=== PATIENT | female | born 1990 | race Caucasian/White ===

== ENCOUNTER 2017-04-20 18:15 | Emergency (ER) | payer OTHER ==
[~2017-04-20] VITALS: Ht 160 cm; Wt 49.1 kg
[2017-04-20 18:17] VITALS: BP 123/75
[2017-04-20] MEDS ORDERED: ACETAMINOPHEN 325 MG TABLET ONE (18:54)
[2017-04-20] MEDS ORDERED: ACETAMINOPHEN 325 MG TABLET PO ONE (19:00)
[2017-04-20] MEDS ORDERED: ONDANSETRON ODT 4 MG ONE (19:46)
[2017-04-20] MEDS ORDERED: ONDANSETRON ODT 4 MG PO ONE (20:00)
== END 2017-04-20 20:53 | disposition home or self-care (01) ==
LOC: ED 20:30
DX: S61.217D Laceration without foreign body of left little finger without damage to nail, subsequent encounter (principal)
CPT/HCPCS: 99283

== ENCOUNTER 2017-04-24 15:18 | Emergency (ER) | payer OTHER ==
[~2017-04-24] VITALS: Ht 160 cm; Wt 49.0 kg
[2017-04-24 15:19] VITALS: BP 118/78
== END 2017-04-24 16:13 | disposition home or self-care (01) ==
LOC: ED 16:04
DX: S61.216D Laceration without foreign body of right little finger without damage to nail, subsequent encounter (principal); X58.XXXD Exposure to other specified factors, subsequent encounter; Y92.89 Other specified places as the place of occurrence of the external cause; Y99.8 Other external cause status; Z88.2 Allergy status to sulfonamides
CPT/HCPCS: 29125

== ENCOUNTER 2017-05-02 16:43 | Emergency (ER) | payer OTHER ==
[~2017-05-02] VITALS: Ht 160 cm; Wt 48.8 kg
[2017-05-02 17:10] VITALS: BP 115/69
== END 2017-05-02 19:14 | disposition left against medical advice (07) ==
LOC: ED 19:08
DX: S61.217D Laceration without foreign body of left little finger without damage to nail, subsequent encounter (principal); Z88.2 Allergy status to sulfonamides; W45.8XXD Other foreign body or object entering through skin, subsequent encounter; Y92.89 Other specified places as the place of occurrence of the external cause; Y99.8 Other external cause status
CPT/HCPCS: 99281

== ENCOUNTER 2017-05-25 16:52 | Emergency (ER) | payer SELFPAY ==
[~2017-05-25] VITALS: Ht 160 cm; Wt 48.5 kg
[2017-05-25 16:53] VITALS: BP 111/75
== END 2017-05-25 17:39 | disposition home or self-care (01) ==
LOC: ED 17:15
DX: S61.217D Laceration without foreign body of left little finger without damage to nail, subsequent encounter (principal)
CPT/HCPCS: 99281

== ENCOUNTER 2017-06-12 12:32 | Emergency (ER) | payer SELFPAY ==
[~2017-06-12] VITALS: Ht 160 cm; Wt 48.2 kg
[2017-06-12] MEDS ORDERED: SODIUM CHLORIDE 0.9% 1,000 ML IV ONE (12:59)
[2017-06-12] MEDS ORDERED: ONDANSETRON 2MG/ML, 2ML IVPush ONE (13:00)
[2017-06-12 13:14] LABS: HCG UR LOT HCG7030192
[2017-06-12] MEDS ORDERED: ONDANSETRON 2MG/ML, 2ML ONE (13:26)
[2017-06-12] MEDS ORDERED: MORPHINE SULFATE 4 MG/ML, 1ML ONE ×2 (13:26→14:24)
[2017-06-12 13:27] LABS: PATH.CAST-FLAG NOT PRESENT; SPERM-FLAG NOT PRESENT; SRC-FLAG NOT PRESENT; XTAL-FLAG NOT PRESENT; YLC-FLAG NOT PRESENT
[2017-06-12] MEDS: MORPHINE SULFATE 4 MG/ML, 1ML IVPush PRN ×2 (13:28→14:27)
[2017-06-12 13:33] LABS: HEMATOCRIT 40.1 % (34.6-47.8); HEMOGLOBIN 13.2 g/dL (11.7-16.4); WHITE BLOOD COUNT 6.4 x10^3/uL (3.4-10)
[2017-06-12 13:36] LABS: HCG UR OBC PASS
[2017-06-12 13:39] LABS: ASPARTATE AMINO TRANSFERASE 17 U/L (15-37); BLOOD UREA NITROGEN 11 mg/dL (7-18)
[2017-06-12 14:27] VITALS: BP 111/66
== END 2017-06-12 15:16 | disposition home or self-care (01) ==
LOC: ED 15:12
DX: R10.31 Right lower quadrant pain (principal); R11.0 Nausea
CPT/HCPCS: 36415; 76830; 80053; 81001; 81025; 85025; 96361; 96374; 96375; 96376; 99285; J2405; J7030

== ENCOUNTER 2017-08-09 08:50 | Emergency (ER) | payer SELFPAY ==
[~2017-08-09] VITALS: Ht 160 cm; Wt 49.0 kg
[2017-08-09 09:31] LABS: HCG UR LOT HCG7030192
[2017-08-09 09:43] LABS: HCG UR OBC PASS; PATH.CAST-FLAG NOT PRESENT; SPERM-FLAG NOT PRESENT; SRC-FLAG NOT PRESENT; XTAL-FLAG NOT PRESENT; YLC-FLAG NOT PRESENT
[2017-08-09] MEDS ORDERED: CEFTRIAXONE 250 MG ONE (10:35)
[2017-08-09] MEDS ORDERED: AZITHROMYCIN 500 MG TABLET ONE (10:35)
[2017-08-09] MEDS ORDERED: AZITHROMYCIN 500 MG TABLET PO ONE (11:00)
[2017-08-09] MEDS ORDERED: CEFTRIAXONE 250 MG IM ONE (11:00)
[2017-08-09 11:31] VITALS: BP 102/70
== END 2017-08-09 11:43 | disposition home or self-care (01) ==
LOC: ED 09:17
DX: A74.9 Chlamydial infection, unspecified (principal); A54.03 Gonococcal cervicitis, unspecified
CPT/HCPCS: 81001; 81025; 87086; 87210; 87491; 87591; 87808; 96372; 99284; J0696

== ENCOUNTER 2017-08-15 16:52 | Emergency (ER) | payer SELFPAY ==
[~2017-08-15] VITALS: Ht 160 cm; Wt 49.0 kg
[2017-08-15 16:56] VITALS: BP 132/83
== END 2017-08-15 18:57 | disposition home or self-care (01) ==
LOC: ED 17:25
DX: J02.0 Streptococcal pharyngitis (principal)
CPT/HCPCS: 71020; 99284

== ENCOUNTER 2018-07-04 17:14 | Emergency (ER) | payer OTHER ==
[~2018-07-04] VITALS: Ht 160 cm; Wt 49.6 kg
[2018-07-04 17:21] VITALS: BP 106/58
[2018-07-04] MEDS ORDERED: ONDANSETRON ODT 4 MG PO ONE (17:30)
[2018-07-04] MEDS ORDERED: ONDANSETRON ODT 4 MG ONE (17:36)
[2018-07-04] MEDS ORDERED: MAALOX/HYOSCYAMINE/LIDOCAINE 45 ML BTL ONE (18:10)
[2018-07-04] MEDS ORDERED: METOCLOPRAMIDE 10MG TABLET ONE (18:15)
[2018-07-04] MEDS ORDERED: MAALOX/HYOSCYAMINE/LIDOCAINE 45 ML BTL PO ONE (18:30)
[2018-07-04] MEDS ORDERED: METOCLOPRAMIDE 10MG TABLET PO ONE (18:30)
== END 2018-07-04 18:36 | disposition home or self-care (01) ==
LOC: ED 18:29
DX: K52.9 Noninfective gastroenteritis and colitis, unspecified (principal)
CPT/HCPCS: 99283; Q0162

== ENCOUNTER 2018-10-15 19:31 | Emergency (ER) | payer OTHER ==
[~2018-10-15] VITALS: Ht 162.6 cm; Wt 52.1 kg
[2018-10-15 19:34] VITALS: BP 112/78
== END 2018-10-15 20:32 | disposition home or self-care (01) ==
LOC: ED 20:26
DX: M25.571 Pain in right ankle and joints of right foot (principal); Z76.0 Encounter for issue of repeat prescription
CPT/HCPCS: 99283

== ENCOUNTER 2019-03-19 18:26 | Emergency (ER) | payer SELFPAY ==
[~2019-03-19] VITALS: Ht 160 cm; Wt 48.0 kg
[2019-03-19 18:33] VITALS: BP 108/73
[2019-03-19] MEDS ORDERED: KETOROLAC 30 MG/1 ML IM ONE (19:00)
== END 2019-03-19 18:50 | disposition left against medical advice (07) ==
LOC: ED 18:40
DX: M54.2 Cervicalgia (principal)
CPT/HCPCS: 99281

== ENCOUNTER 2019-03-20 23:25 | Emergency (ER) | payer OTHER ==
[~2019-03-20] VITALS: Ht 160 cm; Wt 47.3 kg
[2019-03-20 23:34] VITALS: BP 92/64
--- NOTE | 2019-03-21 00:18 | NUR ---
pt to ct at this time
== END 2019-03-21 02:08 | disposition home or self-care (01) ==
LOC: ED 03-21 01:20
DX: M50.121 Cervical disc disorder at C4-C5 level with radiculopathy (principal)
CPT/HCPCS: 72125; 99284

== ENCOUNTER 2019-09-20 18:49 | Emergency (ER) | payer OTHER ==
[~2019-09-20] VITALS: Ht 160 cm; Wt 48.9 kg
[2019-09-20 18:58] VITALS: BP 118/72
--- NOTE | 2019-09-20 20:39 | NUR ---
wheeled back from lobby. c/o mid neck pain that radiates down R arm. also c/o R heel pain. skin warm and dry, can flex/point w/o issue. 2+DP. hurts to walk on it. call [facility] in reach. as
[2019-09-20] MEDS ORDERED: KETOROLAC 30 MG/1 ML ONE (20:56)
[2019-09-20] MEDS ORDERED: KETOROLAC 30 MG/1 ML IM ONE (21:00)
== END 2019-09-20 21:03 | disposition home or self-care (01) ==
LOC: ED 20:50
DX: G89.11 Acute pain due to trauma (principal); M54.2 Cervicalgia; V49.09XA Driver injured in collision with other motor vehicles in nontraffic accident, initial encounter; Y93.89 Activity, other specified; Y92.89 Other specified places as the place of occurrence of the external cause; Y99.8 Other external cause status
CPT/HCPCS: 72125; 96372; 99284; J1885

== ENCOUNTER 2019-10-25 14:07 | Emergency (ER) | payer OTHER ==
[~2019-10-25] VITALS: Ht 160 cm; Wt 50.1 kg
[2019-10-25 14:26] VITALS: BP 114/75
== END 2019-10-25 17:12 | disposition home or self-care (01) ==
LOC: ED 16:45
DX: S16.1XXA Strain of muscle, fascia and tendon at neck level, initial encounter (principal); S20.212A Contusion of left front wall of thorax, initial encounter; S09.90XA Unspecified injury of head, initial encounter; V49.49XA Driver injured in collision with other motor vehicles in traffic accident, initial encounter; Y93.89 Activity, other specified; Y92.410 Unspecified street and highway as the place of occurrence of the external cause; Y99.8 Other external cause status
CPT/HCPCS: 70450; 72125; 99285

== ENCOUNTER 2019-11-12 20:43 | Emergency (ER) | payer SELFPAY ==
[~2019-11-12] VITALS: Ht 160 cm; Wt 50.0 kg
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
[2019-11-12] MEDS ORDERED: SODIUM CHLORIDE FLUSH 10ML SYR IVF ONE (21:30)
[2019-11-12] MEDS ORDERED: PROCHLORPERAZINE 5 MG/ML, 2ML IVPush ONE (21:30)
[2019-11-12] MEDS ORDERED: KETOROLAC 30 MG/1 ML IVPush ONE (21:30)
[2019-11-12] MEDS ORDERED: KETOROLAC 30 MG/1 ML ONE (21:54)
[2019-11-12] MEDS ORDERED: PROCHLORPERAZINE 5 MG/ML, 2ML ONE (21:54)
--- NOTE | 2019-11-12 22:03 | NUR ---
PIV placed with lab draw. Pt medicated per NOV. VS retaken. Lights dimmed for comfort. Call light within reach.
[2019-11-12 22:04] VITALS: BP 120/80
--- NOTE | 2019-11-12 22:16 | NUR ---
CT PENDING NEG. BETA.
--- NOTE | 2019-11-12 22:43 | NUR ---
Pt resting on fred. VSS. Waiting for CT scans after preg results.
[2019-11-12 22:48] LABS: BASOPHILS # (AUTO) 0.05 x10^3/uL (0-0.1); BASOPHILS % (AUTO) 1 % (0-1); EOSINOPHILS # (AUTO) 0.08 x10^3/uL (0-0.4); EOSINOPHILS % (AUTO) 1 % (1-7); LYMPHOCYTES # (AUTO) 2.62 x10^3/uL (1-3.4); LYMPHOCYTES % (AUTO) 36 % (22-44); MD NO; MEAN CORPUSCULAR HEMOGLOBIN 27.1 pg (27.0-34.8); MEAN CORPUSCULAR HGB CONC 32.6 g/dL (32.4-35.8); MEAN CORPUSCULAR VOLUME 83.1 fL (80-100); MEAN PLATELET VOLUME 9.3 fL (7.4-10.4); MONOCYTES # (AUTO) 0.43 x10^3/uL (0.2-0.8); MONOCYTES % (AUTO) 6 % (2-9); NEUTROPHILS # (AUTO) 4.05 x10^3/uL (1.8-6.8); NEUTROPHILS % (AUTO) 56 % (42-75); PLATELET COUNT 265 x10^3/uL (130-400); RED BLOOD COUNT 4.71 x10^6/uL (3.82-5.3); RED CELL DISTRIBUTION WIDTH 12.8 % (9.6-15.2)
--- NOTE | 2019-11-12 22:54 | NUR ---
CT DELAY, NO BETA RESULT.
[2019-11-12 23:03] LABS: ALBUMIN 3.8 g/dL (3.4-5.0); ANION GAP 8 mmol/L (5-15); CALCIUM 8.6 mg/dL (8.5-10.1); CHLORIDE 103 mmol/L (98-107)
[2019-11-12 23:09] LABS: CREATININE 0.64 mg/dL (0.55-1.02)
--- NOTE | 2019-11-12 23:21 | NUR ---
aware of preg test results. Per , okay with CT scan.
--- NOTE | 2019-11-12 23:23 | NUR ---
Pt to CT.
[2019-11-12] MEDS ORDERED: OMNIPAQUE 350 MG/ML, 100ML BOTTLE ONE (23:45)
--- NOTE | 2019-11-12 23:51 | NUR ---
Pt to RN stating that she needs to leave to help her friend. Pt encouraged to stay for CT results. Pt declined and stated that she will return tomorrow for results. MD aware. Pt signed AMA form. Pt ambulatory out of ER.
== END 2019-11-12 23:54 | disposition home or self-care (01) ==
LOC: ED 23:43
DX: G43.C0 Periodic headache syndromes in child or adult, not intractable (principal); H53.8 Other visual disturbances; Z72.9 Problem related to lifestyle, unspecified
CPT/HCPCS: 36415; 70450; 70496; 70498; 80048; 82040; 84703; 85025; 96374; 96375; 99285; J0780; J1885; Q9967